=== PATIENT | male | born 1975 | race Caucasian/White ===

== ENCOUNTER → 2019-03-30 | Outpatient (CLI) | payer BC ==
--- NOTE | 2019-04-10 18:30 | SLEEP ---
[address] [address] SLEEP STUDY REPORT Name: PAPI MAURICE Room: [facility]#: [id number] Admission: 03/30/19 Attend Phys: Christen Herman Discharge: Date of : 71 Report #: [id number] THIS REPORT FOR: //name// CC: Christen Perry MD PRIMARY CARE This study has been reviewed in its entirety by a board certified sleep specialist DATE OF SERVICE: 03/31/2019 HOME SLEEP STUDY The patient is a 44-year-old who weighs 260 pounds with a BMI of 30. The patient has moderate to severe subjective hypersomnia with an Herminie score of 15. The patient underwent home sleep study performed at [facility]. Total recording time was 269 minutes. During the night study, the patient had 72 obstructive apneas, 1 central apnea, no mixed apneas and 63 hypopneas. The patient's apnea hypopnea index was 30 per hour with a supine index of 30 per hour as well. Nocturnal oximetry study revealed an average oxygen saturation of 93% with a lowest of 78%. 11 minutes were spent in oxygen saturation of less than 90%. EKG monitoring revealed mean heart rate of 95 beats per minute with a maximum of 116 beats per minute. IMPRESSION: 1. Severe sleep apnea-hypopnea syndrome at an AHI of 30 per hour. 2. Nocturnal hypoxia secondary to obstructive sleep apnea. RECOMMENDATIONS: 1. The patient's severe sleep apnea should be treated with CPAP. This can be done as an in-lab CPAP titration study versus home auto-titration study. 2. Once the patient is optimally treated with CPAP, then follow up in 4-6 weeks to assess compliance and to document clinical improvement. 3. Weight loss is strongly advised. 4. Avoid [employer] depressants. 5. Cautioned regarding driving until symptoms of sleep apnea have resolved with the above recommendations. <ELECTRONICALLY SIGNED> By: Lane Woodson MD 04/10/19 1830 [id number] Shelia Woodson MD /nt
== END ==
LOC: M.SLEEPLAB 14:30
DX: G47.30 Sleep apnea, unspecified (principal); G47.33 Obstructive sleep apnea (adult) (pediatric); R09.02 Hypoxemia